=== PATIENT | male | born 1950 | race Caucasian/White ===

== ENCOUNTER 2019-07-17 08:11 | Emergency (ER) | payer MEDICARE, OTHER ==
--- NOTE | 2019-07-17 08:14 | UC ---
Skin Complaint HPI - HPI Summary HPI Summary: day 2 of worsening rash around left eye--no visual disturbance--- - History of Current Complaint Chief Complaint: UCSkin Time Seen by Provider: 07/17/19 08:13 Stated Complaint: RASH AROUND EYE Hx Obtained From: Patient Onset/Duration: Sudden Onset, Lasting Days - 2 Timing: Constant Onset Severity: Mild Current Severity: Mild Location: Other - left side of face around eye Character: Swelling, Pain Aggravating Factor(s): Nothing Alleviating Factor(s): Nothing Associated Signs & Symptoms: Positive: Rash - Allergy/Home Medications Allergies/Adverse Reactions: Allergies Allergy/AdvReac Type Severity Reaction Status Date / Time No Known Allergies Allergy Verified 07/17/19 08:46 Home Medications: Home Medications Tamsulosin CAP* [Flomax CAP*] 0.4 mg PO BEDTIME 07/02/12 [History Confirmed ] Albuterol HFA INHALER* [Ventolin HFA Inhaler*] 2 puff INH Q6H PRN #1 mdi [Rx Confirmed 07/17/19] Dutasteride [Avodart] 0.5 mg PO DAILY 02/02/18 [History Confirmed 07/17/19] Lisinopril TAB* [Prinivil TAB 5 MG*] 5 mg PO DAILY 02/02/18 [History Confirmed 07/17/19] Aspirin 325 mg PO DAILY 02/05/18 [History Confirmed 07/17/19] Multivitamin [Multiple Vitamins] 1 tab PO DAILY 02/05/18 [History Confirmed ] ValACYclovir (*) [Valtrex 1 GM(*)] 1 gm PO TID 10 Days #30 tab 07/17/19 [Rx] PMH/Surg Hx/FS Hx/Imm Hx Cardiovascular History: Hypertension GI/ History: Other Other GI/ History: BPH - Surgical History Surgical History: Yes Surgery Procedure, Year, and Place: 2009 SPERMATOC[facility]. 2012 RIGHT INGUINAL [facility]ERN[facility]. ORIF RIGHT HAND - Family History Known Family History: Positive: None Family History: denies cardio vascular issues in family lineage - Social History Occupation: Retired Lives: With Family Alcohol Use: Daily Alcohol Amount: 2 DRINKS/DAY Substance Use Type: None Smoking Status (MU): Never Smoked Tobacco Have You Smoked in the Last Year: No - Immunization History Most Recent Influenza Vaccination: 2013 Most Recent Tetanus Shot: up to date Most Recent Pneumonia Vaccination: 2013 Review of Systems All Other Systems Reviewed And Are Negative: Yes Constitutional: Positive: Negative Skin: Positive: Rash Eyes: Positive: Negative ENT: Positive: Negative Respiratory: Positive: Negative Cardiovascular: Positive: Negative Gastrointestinal: Positive: Negative Genitourinary: Positive: Negative Motor: Positive: Negative Neurovascular: Positive: Negative Musculoskeletal: Positive: Negative Neurological/Mental Status: Positive: Negative Psychological: Positive: Negative Is Patient Immunocompromised?: No Physical Exam Triage Information Reviewed: Yes Appearance: Well-Appearing, No Pain Distress, Well-Nourished Vital Signs Reviewed: Yes Eye Exam: Other Eyes: Positive: Conjunctiva Clear - right, Conjunctiva Inflamed - left conjuctiva, Discharge - clear left, Other: - eomi, vision wnl, left upper lid swollen-- ENT Exam: Normal ENT: Positive: Normal ENT inspection, Hearing grossly normal, Pharynx normal, TMs normal. Negative: Nasal congestion, Nasal drainage, Trismus, Muffled voice , Hoarse voice, Sinus tenderness Dental Exam: Normal Neck exam: Normal Neck: Positive: Supple, Nontender, No Lymphadenopathy Respiratory Exam: Normal Respiratory: Positive: Chest non-tender, No respiratory distress, No accessory muscle use Cardiovascular Exam: Normal Cardiovascular: Positive: RRR, Pulses Normal, Brisk Capillary Refill Musculoskeletal Exam: Normal Musculoskeletal: Positive: Strength Intact, ROM Intact, No Edema Neurological Exam: Normal Neurological: Positive: Alert, Muscle Tone Normal Psychological Exam: Normal Skin: Positive: Rashes - trigeminaal branch of facial nerve left side erythema and pustular rash Course/Dx - Course Course Of Treatment: Reviewed case with Dr. Bernabe plan will be to start Valtrex and follow patient at office Friday--per Dr. Bernabe no antiviral eye drops at this time - Diagnoses Provider Diagnosis: Shingles of eyelid, Hypertension Discharge ED - Sign-Out/Discharge Documenting (check all that apply): Patient Departure All imaging exams completed and their final reports reviewed: No Studies - Discharge Plan Condition: Stable Disposition: HOME Prescriptions: ValACYclovir (*) [Valtrex 1 GM(*)] 1 gm PO TID 10 Days #30 tab Patient Education Materials: Shingles (ED), Hypertension (ED) Referrals: Stanislaw Bernabe MD [Medical Doctor] - 07/19/19 8:00 am (call office fo a follow up) Fallon Thomson MD [Primary Care Provider] - 2 Weeks (for bp re-check) - Billing Disposition and Condition Condition: STABLE Disposition: Home
[2019-07-17] MEDS ORDERED: Tetracaine 0.5% OPTH.SOL 4 ML* 1 DROP BTL ONE (08:21)
[2019-07-17] MEDS ORDERED: BSS OPTH.SOL* BTL OPHTHALMIC ONE (08:22)
[2019-07-17] MEDS ORDERED: Fluorescein Sodium TOPICAL* 1 MG TEST STRIP OPHTHALMIC ONE (08:22)
[2019-07-17 08:46] VITALS: BP 153/96
== END 2019-07-17 09:00 | disposition home or self-care (01) ==
LOC: UCEAST 08:15
DX: B02.39 Other herpes zoster eye disease (principal); I10 Essential (primary) hypertension; N40.0 Benign prostatic hyperplasia without lower urinary tract symptoms; Z79.899 Other long term (current) drug therapy
CPT/HCPCS: 87798; 99212; A9270-GY; G0463